=== PATIENT | female | born 1990 | race Caucasian/White ===

== ENCOUNTER 2020-02-12 03:05 | Emergency (ER) | payer OTHER ==
[~2020-02-12] VITALS: Ht 162.6 cm; Wt 60.8 kg
[2020-02-12 05:26] LABS: Basophils # (auto) 0 10 ^3/uL (0-0.2); Basophils % (auto) 0.3 % (0.0-2.0); Eosinophils # (auto) 0 10 ^3/uL (0-0.8); Hematocrit 36.8 % (36.0-46.0); Hemoglobin 12.1 g/dL (12.2-16.2); Lymphocytes # (auto) 0.8 10 ^3/uL (0.4-5.4); Lymphocytes % (auto) 11.5 % (10.0-50.0); Mean Corpuscular Hemoglobin 28.8 pg (28.0-32.0); Mean Corpuscular Volume 87.2 fL (80.0-100.0); Monocytes # (auto) 0.1 10 ^3/uL (0-1.3); Monocytes % (auto) 1.6 % (0.0-12.0); Neutrophils # (auto) 6.2 10 ^3/uL (1.6-8.6); Neutrophils % (auto) 86.6 % (37.0-80.0); Nucleated Red Blood Cells % 0.1 %; Platelet Count (auto) 257 10^3/uL (140-450); Red Blood Cells 4.22 10^6/uL (4.0-5.20); Red Cell Distribution Width 13.9 % (11.8-14.3); White Blood Cell 7.1 10^3/uL (4.4-10.8)
[2020-02-12 05:44] LABS: Albumin 3.8 g/dL (3.4-5.0); Calcium 7.9 mg/dL (8.5-10.1)
[2020-02-12 05:47] LABS: Bilirubin, Total 0.1 mg/dL (0.2-1.0)
[2020-02-12 05:53] LABS: Salicylate < 1.7 mg/dL (2.8-20.0)
[2020-02-12 05:58] LABS: Acetaminophen < 2.0 ug/mL (10-30)
[2020-02-12 07:30] VITALS: BP 112/82
[2020-02-12 08:23] LABS: Amphetamine Screen, Urine NEGATIVE (NEGATIVE); Barbiturate Scree,Urine NEGATIVE (NEGATIVE); Benzodiazephine Screen, Urine NEGATIVE (NEGATIVE); Cannabinoid Screen, Urine NEGATIVE (NEGATIVE); Cocaine Screen, Urine NEGATIVE (NEGATIVE); Opiate Scree,Urine NEGATIVE (NEGATIVE); Phencyclidine Screen, Urine NEGATIVE (NEGATIVE)
[2020-02-12] MEDS ORDERED: PANTOPRAZOLE 40 MG TAB PO ONE (08:45)
== END 2020-02-12 09:08 | disposition left against medical advice (07) ==
LOC: EDBD 03:05 → ER 03:05
DX: F10.920 Alcohol use, unspecified with intoxication, uncomplicated (principal); R40.0 Somnolence
CPT/HCPCS: 36415; 71045; 80053; 80307; 80320; 80329; 85025; 93005